=== PATIENT | male | born 1995 | race Caucasian/White ===

== ENCOUNTER 2020-04-19 17:33 | Emergency (ER) | payer OTHER ==
[2020-04-19 17:46] VITALS: BP 129/54
--- NOTE | 2020-04-19 17:54 | ED Physician Documentation ---
PD HPI UPPER EXT INJURY - Stated complaint Stated Complaint: RT MIDDLE FINGER LAC - Chief complaint Chief Complaint: Laceration - History obtained from History obtained from: Patient (He cut his right middle finger on a sharp metal edge well pulling up a stake at a friend's house just prior to arrival. He is up-to-date on tetanus.) Review of Systems Constitutional: reports: Reviewed and negative Nose: reports: Reviewed and negative Throat: reports: Reviewed and negative PD PAST MEDICAL HISTORY - Past Medical History Past Medical History: Yes - Past Surgical History Past Surgical History: Yes - Allergies Allergies/Adverse Reactions: Allergies Allergy/AdvReac Type Severity Reaction Status Date / Time No Known Drug Allergies Allergy Verified 04/19/20 17:43 - Social History Does the pt smoke?: No Smoking Status: Never smoker Does the pt drink ETOH?: No Does the pt have substance abuse?: No - Immunizations Immunizations are current?: Yes - POLST Patient has POLST: No PD ED PE NORMAL - Vitals Vital signs reviewed: Yes - General General: Alert and oriented X 3, No acute distress - Extremities Extremities: Other (He has a skin avulsion on the radial side of the right middle finger, pulp only, less than 1 cm.) - Neuro Neuro: Alert and oriented X 3, Normal speech Results - Vitals Vitals: Vital Signs - 24 hr 04/19/20 17:43 Temperature 36.8 C Heart Rate 97 Respiratory 16 Rate Blood Pressure 129/54 L O2 Saturation 96 Oxygen O2 Source Room air PD MEDICAL DECISION MAKING - ED course ED course: Wound was irrigated and dressed with Gelfoam and tube gauze and he was counseled on wound care. Departure - Departure Disposition: 01 Home, Self Care Clinical Impression: Fingertip avulsion Qualifiers: Encounter type: initial encounter Qualified Code(s): S61.209A - Unspecified open wound of unspecified finger without damage to nail, initial encounter Condition: Good Record reviewed to determine appropriate education?: Yes Instructions: ED Laceration Amputation Finger Tip Open Tx Comments: Keep the current dressing on until Tuesday unless it is severely painful or otherwise bothering you. After that you should just need a little bit of antibiotic ointment such as bacitracin which is available [id number] and a Band-Aid. Return for new or worsening symptoms. You will need to keep it covered for probably several weeks to allow for full healing. You can wash it with soap and water between dressing changes though.
== END 2020-04-19 18:02 | disposition home or self-care (01) ==
LOC: ED 17:33
DX: S61.212A Laceration without foreign body of right middle finger without damage to nail, initial encounter (principal); W26.8XXA Contact with other sharp object(s), not elsewhere classified, initial encounter; Y93.89 Activity, other specified
CPT/HCPCS: 99281; 99282

== ENCOUNTER 2020-06-22 14:29 | Emergency (ER) | payer OTHER ==
[2020-06-22] MEDS ORDERED: HYDROmorphone 1 MG/ML CARPUJECT IM STA (15:03)
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
[2020-06-22 16:38] VITALS: BP 104/65
== END 2020-06-22 16:42 | disposition home or self-care (01) ==
LOC: ED 14:29
DX: S30.0XXA Contusion of lower back and pelvis, initial encounter (principal); M53.3 Sacrococcygeal disorders, not elsewhere classified; V28.0XXA Motorcycle driver injured in noncollision transport accident in nontraffic accident, initial encounter; Y93.89 Activity, other specified
CPT/HCPCS: 72220; 96374; 99283; 99284; J1170

== ENCOUNTER 2021-02-07 14:22 | Emergency (ER) | payer OTHER ==
--- NOTE | 2021-02-07 15:07 | ED Physician Documentation ---
History of Present Illness - Stated complaint Stated Complaint: RT SHOULDER/ELBOW PX - Chief complaint Chief Complaint: Ext Problem - Additonal information Additional information: 25-year-old male presents the emergency department for evaluation of acute on chronic right shoulder and elbow pain. Reports it has been a persistent problem since at least 2018. He reports that when he plays football and he throws the ball he often feels a pop in his shoulder that will cause pain and result in inability to move the shoulder. Pain will typically subside after a few hours and then he is able to move the shoulder normally. He had a similar event this afternoon when throwing a football but it was more severe than he typically has. He states he has been seen by [facility] and advised to do rotator cuff exercises. He denies any falls or trauma. No joint swelling or erythema. No fevers. No history of injection drug use. This gentleman is right-hand dominant. Review of Systems Constitutional: reports: Reviewed and negative Ears: reports: Reviewed and negative Nose: reports: Reviewed and negative Throat: reports: Reviewed and negative Cardiac: reports: Reviewed and negative Respiratory: reports: Reviewed and negative GI: reports: Reviewed and negative : reports: Reviewed and negative Skin: reports: Reviewed and negative Musculoskeletal: reports: Joint pain (right shoulder/right elbow) PD PAST MEDICAL HISTORY - Past Medical History Cardiovascular: None Respiratory: None Neuro: None Endocrine/Autoimmune: None GI: None : None HEENT: None Psych: None Musculoskeletal: None Derm: Other - Past Surgical History Past Surgical History: Yes - Present Medications Home Medications: Ambulatory Orders Medication Instructions Recorded Confirmed HYDROcod/ACETAM 5/325 [[place] 5/325] 1 - 2 ea PO Q6H PRN #14 tablet 06/22/20 - Allergies Allergies/Adverse Reactions: Allergies Allergy/AdvReac Type Severity Reaction Status Date / Time No Known Drug Allergies Allergy Verified 02/07/21 14:26 - Social History Does the pt smoke?: No Smoking Status: Never smoker Does the pt drink ETOH?: No Does the pt have substance abuse?: No - Immunizations Immunizations are current?: Yes - POLST Patient has POLST: No PD ED PE EXPANDED - General General: Alert, No acute distress - Extremities Extremities: Right shoulder (negative Yearansons and Neers. Full ROM in all planes agaist resistance. Midl tenderness elicited posterior shoulder shoulder with abduction. ), Right elbow (normal flexion/extension against resistance. normal pronation/supination. No swelling, erythema. No tendneress of olecranos process. ) Results - Vitals Vitals: Vital Signs - 24 hr 02/07/21 14:26 Temperature 36.5 C Heart Rate 83 Respiratory 16 Rate Blood Pressure 160/80 H O2 Saturation 96 Oxygen O2 Source Room air - Rads (name of study) right shoulder Radiology: EMP read indepedently (No acute prociess) right elbow xr Radiology: EMP read indepedently (no acute process) PD MEDICAL DECISION MAKING - ED course Complexity details: reviewed results, re-evaluated patient, d/w patient ED course: 25-year-old male presents emergency department for acute on chronic right shoulder pain that has been a persistent problem since 2019. He often feels acute pain in the shoulder when throwing a ball. He had an event today in which he threw a ball felt a pop in the shoulder and could not move it for nearly an hour. After time pain has subsided and he now has nearly normal shoulder exam. Most of the tenderness elicited was in the posterior shoulder joint with abduction. X-rays do not show any acute focal abnormalities. I suspect this gentleman has a partial labral tear contributing to his symptoms. I have encouraged him to continue to follow-up with [facility]. He may benefit from an MRI of the shoulder for full differentiation. History and exam is not c onsistent with a septic joint. Departure - Departure Disposition: 01 Home, Self Care Clinical Impression: Right shoulder pain Qualifiers: Chronicity: acute Qualified Code(s): M25.511 - Pain in right shoulder Condition: Stable Record reviewed to determine appropriate education?: Yes Instructions: ED Torn Rotator Cuff, Arthroscopy Hip Repair Labral Tear Comments: Tyler as we discussed I suspect that you have a labrum tear in your right shoulder. This can be difficult to diagnose at the bedside and in the long-term an MRI may be necessary in order to fully determine the cause of your reoccurring shoulder pain. I do recommend that you follow-up with [facility] within the next week and request referral to either orthopedics, physical therapy or an MRI. Return to the emergency department if you have sudden weakness in the shoulder develop fevers or swelling
[2021-02-07 15:17] VITALS: BP 139/83
--- NOTE | 2021-02-07 16:07 | XRAY Report ---
PROCEDURE: Elbow 3 View RT INDICATIONS: elbow pain TECHNIQUE: 3 views of the elbow were acquired. COMPARISON: Correlation is made with the accompanying shoulder plain films, 02/07/2021 FINDINGS: Bones: There is a 3 mm chronic appearing bony fragment seen along the coracoid process, as seen on t he lateral view. No additional fractures or dislocations. No suspicious bony lesions. Soft tissues: No elbow joint effusion. No suspicious soft tissue calcifications. IMPRESSION: No acute abnormality is seen. However, there is a chronic appearing 3 mm fragment along the coronary process, seen only on the late ral view. If clinically appropriate, please consider a follow-up elbow CT or MRI for further evaluati on Reviewed by: Cisco Johnson MD on 02/07/2021 3:06 PM BRIDGET Approved by: Cisco Johnson MD on 02/07/2021 3:06 PM BRIDGET Station ID: [id number]
--- NOTE | 2021-02-07 16:09 | XRAY Report ---
PROCEDURE: Shoulder 2 View RT INDICATIONS: shoulder pain TECHNIQUE: 2 views of the shoulder were acquired. COMPARISON: Correlation is made with the accompanying elbow plain films, 02/07/2021. FINDINGS: Bones: No fractures or dislocations. No suspicious bony lesions. There is a small bone island seen within the right humeral head. Visualized ribs appear intact. There is minimal subacromial spurring. Oft tissues: No suspicious soft tissue calcifications. IMPRESSION: No significant shoulder abnormality is seen by plain film. If it would be helpful for clinical management decision making, please consider a dedicated, schedule d shoulder MRI for further evaluation (assuming that there is no contraindication). Reviewed by: Cisco Johnson MD on 02/07/2021 3:07 PM BRIDGET Approved by: Cisco Johnson MD on 02/07/2021 3:07 PM BRIDGET Station ID: [id number]
== END 2021-02-07 15:19 | disposition home or self-care (01) ==
LOC: ED 14:22
DX: M25.511 Pain in right shoulder (principal); G89.29 Other chronic pain; M25.521 Pain in right elbow
CPT/HCPCS: 99282; 99283

== ENCOUNTER 2022-10-09 08:00 | Outpatient (CLI) | payer OTHER ==
[2022-10-09 18:56] LABS: BASOPHILS # (AUTO) 0.1 10^3/uL (0.0-0.1); BASOPHILS % (AUTO) 1.1 %; EOSINOPHILS # (AUTO) 0.2 10^3/uL (0.0-0.7); EOSINOPHILS % (AUTO) 3.6 %; HCT - HEMATOCRIT 47.4 % (42.0-52.0); HGB - HEMOGLOBIN 16.3 g/dL (14.0-18.0); LYMPHOCYTES # (AUTO) 1.6 10^3/uL (1.5-3.5); LYMPHOCYTES % (AUTO) 29.2 %; MEAN CORPUSCULAR HEMOGLOBIN 30.4 pg (27.0-31.0); MEAN CORPUSCULAR HGB CONC 34.4 g/dL (32.0-36.0); MEAN CORPUSCULAR VOLUME 88.4 fL (80.0-94.0); MEAN PLATELET VOLUME 9.6 fL (7.4-11.4); MONOCYTES # (AUTO) 0.6 10^3/uL (0.0-1.0); MONOCYTES % (AUTO) 10.7 %; NEUTROPHILS % (AUTO) 55.2 %; PLT - PLATELET COUNT 220 10^3/uL (130-450); RED BLOOD COUNT 5.36 10^6/uL (4.70-6.10); RED CELL DISTRIBUTION WIDTH 12.4 % (12.0-15.0); WHITE BLOOD COUNT 5.4 x10^3/uL (4.8-10.8)
[2022-10-09 19:08] LABS: ALBUMIN 4.4 g/dL (3.2-5.5); ALBUMIN/GLOBULIN RATIO 1.4 (1.0-2.2); BILIRUBIN,TOTAL 0.9 mg/dL (0.2-1.0); CALCIUM 9.3 mg/dL (8.5-10.3); CREATININE 1.2 mg/dL (0.6-1.2); POTASSIUM 4.9 mmol/L (3.5-5.0); TOTAL PROTEIN 7.6 g/dL (6.7-8.2)
== END 2022-10-09 23:59 | disposition home or self-care (01) ==
LOC: LAB.N 08:00
PROVIDERS: ATTEND Family Medicine
DX: L95.9 Vasculitis limited to the skin, unspecified (principal)
CPT/HCPCS: 36415; 80053; 85025; 85651

== ENCOUNTER 2023-07-05 10:11 | Outpatient (CLI) | payer OTHER ==
--- NOTE | 2023-07-05 18:46 | XRAY Report ---
PROCEDURE: Chest 2 View X-Ray INDICATIONS: PERSISTENT COUGH TECHNIQUE: 2 views of the chest were obtained. COMPARISON: None. FINDINGS: Surgical changes and devices: None. Lungs and pleura: No pleural effusions or pneumothorax. Lungs are clear. Mediastinum: Mediastinal contours appear normal. Heart size is normal. Bones and chest wall: No suspicious bony lesions. Overlying soft tissues appear unremarkable. IMPRESSION: Normal two-view chest x-ray Reviewed by: Harris Valle MD on 07/05/2023 5:44 PM AKKOBE Approved by: Harris Valle MD on 07/05/2023 5:44 PM AKDT Station ID: [id number]
== END 2023-07-05 23:59 | disposition home or self-care (01) ==
LOC: DI.N 10:11
PROVIDERS: ATTEND Family Medicine
DX: R05.3 Chronic cough (principal)

== ENCOUNTER 2023-07-09 21:52 | Emergency (ER) | payer OTHER ==
--- NOTE | 2023-07-10 00:06 | ED Physician Documentation ---
History of Present Illness - Stated complaint Stated Complaint: COUGH/VOMITING - Chief complaint Chief Complaint: Resp - History obtained from History obtained from: Patient - Additonal information Additional information: HPI from patient. Patient c/o 2-3 weeks of cough, wheezing, post-tussive emesis. These episodes have been predominantly in the morning when first waking from sleep, but increasingly occurring during the day, as well. He has been seen in outpatient setting twice for these symptoms and testing thus far includes negative COVID tests, normal CXR (07/05/23). He has completed a course of doxycycline and is taking benzonatate as well as robitussin AC. He also was given a one-time dose of PO steroid which seemed to help. He does not feel he had any improvement with the other medications. Denies fever. Cough is nonproductive. Denies chest pain, leg swelling. Review of Systems Constitutional: denies: Fever, Chills, Sweats Cardiac: reports: Reviewed and negative Respiratory: reports: Cough, Wheezing. denies: Dyspnea, Hemoptysis Musculoskeletal: denies: Extremity swelling Neurologic: denies: Headache PD PAST MEDICAL HISTORY - Past Medical History Cardiovascular: None Respiratory: None Neuro: None Endocrine/Autoimmune: None GI: None : None HEENT: None Psych: None Musculoskeletal: None Derm: Other - Past Surgical History Past Surgical History: Yes - Present Medications Home Medications: Ambulatory Orders Medication Instructions Recorded Confirmed Codeine Phosphate/Guaifenesin 5 ml PO QID PRN 07/09/23 07/09/23 [Codeine-Guaifen 10-100 mg/5 ml] Albuterol Sulf [Ventolin Hfa 1 - 2 puffs INH Q4HR PRN #1 each 07/10/23 Inhaler] Azithromycin 250 mg PO DAILY #4 tablet 07/10/23 predniSONE [Deltasone] 40 mg PO DAILY 5 Days #10 tablet 07/10/23 - Allergies Allergies/Adverse Reactions: Allergies Allergy/AdvReac Type Severity Reaction Status Date / Time No Known Drug Allergies Allergy Verified 07/09/23 22:05 - Social History Does the pt smoke?: No Smoking Status: Never smoker Does the pt drink ETOH?: No Does the pt have substance abuse?: No - Immunizations Immunizations are current?: Yes - POLST Patient has POLST: No PD ED PE NORMAL - Vitals Vital signs reviewed: Yes - General General: Alert and oriented X 3, No acute distress, Well developed/nourished - HEENT HEENT: Pharynx benign - Cardiac Cardiac: RRR, No murmur, No gallop, No rub - Respiratory Respiratory: No respiratory distress, Other (mild right mid/upper lung rhonchi) Results - Vitals Vitals: Oxygen O2 Source Room air PD Medical Decision Making - ED course Complexity details: considered differential, d/w patient ED course: NAD with symptoms for nearly 3 weeks s/o bronchitis, including post-tussive emesis. He is UTD on immunizations. Mild rhonchi on exam (right-sided). He had normal CXR 07/05/23. He did note some mild improvement seeming to correlate with PO steroid given as one-time dose last week. Differential diagnosis includes bronchitis, early pneumonia, se asonal/environmental allergy, nocturnal reflux causing recurrent coughing. Emergent testing not indicated at this time. He is given albuterol neb and PO decadron for possible bronchospastic component (although no wheezing and good air flow on exam, he does exhibit episodic coughing episodes s/o bronchospasm), and rx for prednisone and albuterol MDI e-prescribed to his pharmacy of choice. Also given 500mg zithromax with rx for 4 days 250mg azithromycin for possible infectious component (such as atypical pneumonia). Return precautions reviewed. Departure - Departure Disposition: 01 Home, Self Care Clinical Impression: Bronchitis with bronchospasm Condition: Good Instructions: ED Bronchitis Asthmatic Prescriptions: Albuterol Sulf [Ventolin Hfa Inhaler] 1 - 2 puffs INH Q4HR PRN #1 each PRN Reason: Shortness Of Air/Wheezing Azithromycin 250 mg PO DAILY #4 tablet predniSONE [Deltasone] 40 mg PO DAILY 5 Days #10 tablet Comments: Based on the number of tests you have had over the past few weeks with unremarkable results, including COVID test and chest x-ray, no tests were performed tonight. You were given a dose of steroid (dexamethasone) to help with what is likely some inflammation of the lungs causing the coughing, as well as the first dose of an antibiotic (azithromycin) in case there is a bacterial component to the bronchitis. You were also given an albuterol nebulized treatment, and I am prescribing an albuterol inhaler, a 5-day course of steroid (prednisolone), and another 4 days of the antibiotic (azithromycin). These prescriptions have been electronically submitted to the [facility] pharmacy in [place]. Follow-up with your primary care provider, next available appointment, for reevaluation. Forms: PCP List Discharge Date/Time: 07/10/23 01:11
[2023-07-10] MEDS ORDERED: ALBUTEROL NEB 2.5 MG/3 ML INH STA (00:38)
[2023-07-10] MEDS ORDERED: AZITHROMYCIN 250 MG TABLET PO STA (00:38)
[2023-07-10] MEDS ORDERED: DEXAMETHASONE 10 MG/ML VIAL PO STA (00:38)
[2023-07-10] MEDS ORDERED: CHERRY SYRUP 10 ML UDC PO ONE ×2 (00:38→00:55)
[2023-07-10] MEDS ORDERED: AZITHROMYCIN 250 MG TABLET PO ONE (00:55)
[2023-07-10] MEDS ORDERED: DEXAMETHASONE 10 MG/ML VIAL ONE (00:55)
[2023-07-10 01:13] VITALS: BP 125/77; O2SAT 97
== END 2023-07-10 01:11 | disposition home or self-care (01) ==
LOC: ED 21:52
DX: J40 Bronchitis, not specified as acute or chronic (principal); Z79.899 Other long term (current) drug therapy
CPT/HCPCS: 94640; 99283; A9270